=== PATIENT | female | born 1960 | race American Indian/Alaskan Native ===

== ENCOUNTER 2017-06-02 18:26 | Emergency (ER) | payer OTHER ==
[2017-06-02 18:27] VITALS: BMI 35.9
[2017-06-02] MEDS ORDERED: Sodium Chloride 0.9% 1,000 ML IV STA (18:49)
[2017-06-02] MEDS ORDERED: DiphenhydrAMINE 50 mg/ml Inj IVP STA (18:49)
--- NOTE | 2017-06-02 18:51 | ED PDOC ---
HPI: Allergic Reaction Time Seen by Provider: 06/02/17 18:49 Chief Complaint (Nursing): Allergic Reaction History Per: Patient Onset/Duration Of Symptoms: Days (2) Current Symptoms Are (Timing): Still Present Context: Food Possible Cause: Food Associated Symptoms: Skin Rash, Swelling Home/EMS Treatment: Benadryl Severity: Moderate Additional Complaint(s): Itchy rash on legs and torso, spread to face with swelling of lips and itching back of throat after eating [place] food yesterday. Took Benadryl yesterday and improved but recurred today. Past Medical History Vital Signs: Last Vital Signs Temp 98.9 F 06/02/17 18:29 Pulse 89 06/02/17 18:29 Resp 18 06/02/17 18:29 BP 143/72 06/02/17 18:29 Pulse Ox 100 06/02/17 18:29 - Medical History PMH: Bronchitis (CHRONIC BRONCHITIS) Denies: Chronic Kidney Disease - Family History Family History: States: Unknown Family Hx - Home Medications Home Medications: Ambulatory Orders Medication Instructions Recorded Cephalexin [Keflex] 500 mg PO Q8 #21 cap 11/23/16 Zolpidem Tartrate [Ambien Cr] 12.5 mg PO HS PRN 11/23/16 oxyCODONE/Acetaminophen [Percocet 1 tab PO .Q4-6 PRN #40 tab 11/23/16 5/325 mg Tab] - Allergies Allergies/Adverse Reactions: Allergies Allergy/AdvReac Type Severity Reaction Status Date / Time latex Allergy ITCHING Verified 11/17/16 13:54 skyla Allergy RASH Verified 11/17/16 13:53 ibuprofen [From Motrin] AdvReac ITCHING Verified 11/17/16 14:33 Review of Systems Constitutional: Negative for: Fever ENT: Positive for: Other (Throat itching) Cardiovascular: Negative for: Chest Pain Respiratory: Negative for: Shortness of Breath, Wheezing Skin: Positive for: Rash Physical Exam - Physical Exam Appears: Positive for: Non-toxic, No Acute Distress Skin: Positive for: Rash (Erythemetous rash legs chest back neck and perioral area) ENT: Negative for: Pharyngeal Erythema, Tonsillar Swelling Cardiovascular/Chest: Positive for: Regular Rate, Rhythm Respiratory: Positive for: CNT, Normal Breath Sounds Neurologic/Psych: Positive for: Alert, Oriented - ECG O2 Sat by Pulse Oximetry: 100 Disposition - Clinical Impression Clinical Impression: Allergic reaction - Patient ED Disposition Is Patient to be Admitted: Transfer of Care - Disposition Disposition: Transfer of Care Disposition Time: 18:57 Condition: FAIR Patient Signed Over To: Soham Chacon
[2017-06-02] MEDS ORDERED: DiphenhydrAMINE 50 mg/ml Inj ONE (18:57)
--- NOTE | 2017-06-02 19:23 | ED PDOC ---
- ECG O2 Sat by Pulse Oximetry: 100 (RA) Pulse Ox Interpretation: Normal Medical Decision Making Medical Decision Making: --Patient is signed out to provider by Bill Zeng MD at 19:00, pending reevaluation Time: 21:15 Clinical Impression: Allergic Reaction Upon provider reevaluation patient is feeling better, medically stable, and requires no further treatment in the ED at this time. Patient will be discharged home with Rx for Zyrtec, Pepcid, and Methylprednisolone. Counseling was provided and all questions were answered regarding diagnosis and need for follow up with [facility]. There is agreement to discharge plan. Return if symptoms persist or worsen. Scribe Attestation: Documented by Jesenia Overton, acting as a scribe for Soham Chacon MD Provider Scribe Attestation: All medical record entries made by the Scribe were at my direction and personally dictated by me. I have reviewed the chart and agree that the record accurately reflects my personal performance of the history, physical exam, medical decision making, and the department course for this patient. I have also personally directed, reviewed, and agree with the discharge instructions and disposition. Disposition Counseled Patient/Family Regarding: Studies Performed, Diagnosis, Need For Followup, Rx Given - Clinical Impression Clinical Impression: Allergic reaction - POA Present On Arrival: None - Disposition Referrals: Dwayne Ott MD [Staff Provider] - Disposition: Routine/Home Disposition Time: 20:00 Condition: STABLE Prescriptions: Cetirizine HCl [Zyrtec] 10 mg PO QAM #10 capsule Famotidine [Pepcid] 20 mg PO Q12 #14 tab Methylprednisolone [Medrol Dosepak] 4 mg PO ASDIR #1 pkg Instructions: Food Allergy (ED), General Allergic Reaction (ED)
[2017-06-03 12:02] VITALS: BP 143/72; PULSE 89; RESP 18; TEMP 98.9; O2SAT 100
== END 2017-06-02 21:15 | disposition home or self-care (01) ==
LOC: H.ER 18:26
DX: T78.40XA Allergy, unspecified, initial encounter (principal)